=== PATIENT | female | born 1970 | race Two or more races ===

== ENCOUNTER 2017-08-08 18:52 | Emergency (ER) | payer MEDICAID ==
[~2017-08-08] VITALS: Ht 154.9 cm; Wt 78.5 kg
[2017-08-08 20:27] VITALS: BP 152/92
--- NOTE | 2017-08-08 20:55 | NUR ---
DR. VILLAR AT BEDSIDE FOR EVLA.
[2017-08-08] MEDS ORDERED: LIDOCAINE 0.5% HCL 50 ML VIAL IJ ONE (21:00)
[2017-08-08] MEDS ORDERED: MISCELLANEOUS MED 1 EA EA XX ONE (21:00)
[2017-08-08] MEDS ORDERED: BLOOD SUGAR DIAGNOSTIC 1 EACH STRIP IN ONE (21:00)
[2017-08-08] MEDS ORDERED: CEFTRIAXONE 1 G VIAL IM ONE (21:00)
[2017-08-08] MEDS ORDERED: POVIDONE-IODINE OINT 28.4 GM TUBE TP ONE (21:00)
[2017-08-08] MEDS ORDERED: LIDOCAINE /MPF 1% VIAL 5 ML VIAL ONE (21:08)
[2017-08-08] MEDS ORDERED: CEFTRIAXONE 1 G VIAL ONE (21:08)
--- NOTE | 2017-08-08 21:10 | NUR ---
DR. VILLAR AT BEDSIDE FOR DIGITAL BLOCK/ AND I/D ON 4TH RIGHT DIGIT
== END 2017-08-08 21:31 | disposition home or self-care (01) ==
LOC: ER 19:04
DX: L03.011 Cellulitis of right finger (principal); E11.9 Type 2 diabetes mellitus without complications
CPT/HCPCS: 10060; 82962; 96372; 99283; A4606; J0696; J3490; Z7610

== ENCOUNTER 2023-07-06 01:40 | Emergency (ER) | payer MEDICAID, OTHER ==
[~2023-07-06] VITALS: Ht 167.6 cm; Wt 70.3 kg
[2023-07-06 02:00] VITALS: BP 141/89; TEMP 98.1; O2SAT 98
== END 2023-07-06 02:50 | disposition home or self-care (01) ==
LOC: ER 01:50
DX: M79.18 Myalgia, other site (principal); E11.9 Type 2 diabetes mellitus without complications; V89.2XXA Person injured in unspecified motor-vehicle accident, traffic, initial encounter; Y93.89 Activity, other specified; Y92.89 Other specified places as the place of occurrence of the external cause; Y99.8 Other external cause status

== ENCOUNTER 2024-12-28 19:24 | Emergency (ER) | payer OTHER ==
[~2024-12-28] VITALS: Ht 175.3 cm; Wt 84.8 kg
[2024-12-28] MEDS: LIDOCAINE 5% (PATCH) 1 EA PATCH TP ONE (00:35)
[2024-12-28] MEDS ORDERED: ACETAMINOPHEN 325 MG TABLET ONE (22:42)
[2024-12-28] MEDS: ACETAMINOPHEN 325 MG TABLET PO ONE (22:44)
[2024-12-28 23:21] VITALS: TEMP 98.2
[2024-12-29] MEDS ORDERED: oxyCODONE/APAP (5/325 MG) 1 UDTAB TABLET ONE (00:23)
[2024-12-29] MEDS ORDERED: LIDOCAINE 5% (PATCH) 1 EA PATCH TP ONE (00:23)
[2024-12-29] MEDS: oxyCODONE/APAP (5/325 MG) 1 UDTAB TABLET PO ONE (00:37)
[2024-12-29] MEDS ORDERED: OXYC-128 PO (00:39)
[2024-12-29 00:46] VITALS: BP 147/84; O2SAT 99
== END 2024-12-29 00:46 | disposition home or self-care (01) ==
LOC: ER 19:30
DX: S42.211A Unspecified displaced fracture of surgical neck of right humerus, initial encounter for closed fracture (principal); S42.251A Displaced fracture of greater tuberosity of right humerus, initial encounter for closed fracture; S42.294A Other nondisplaced fracture of upper end of right humerus, initial encounter for closed fracture; E11.9 Type 2 diabetes mellitus without complications; E78.5 Hyperlipidemia, unspecified; I10 Essential (primary) hypertension; Z88.0 Allergy status to penicillin; W18.39XA Other fall on same level, initial encounter; Y93.89 Activity, other specified; Y92.89 Other specified places as the place of occurrence of the external cause; Y99.8 Other external cause status
CPT/HCPCS: 73000-TC; 73030-TC